=== PATIENT | female | born 2000 | race Caucasian/White ===

== ENCOUNTER → 2022-11-22 07:40 | Outpatient (CLI) | payer OTHER, SELFPAY ==
--- NOTE | ~2022-11-22 | MR_ITS ---
CORRECTED REPORT Ordering provider changed from Joao Reid M.D. to Sumit Reid [facility] [id number] EXAMINATION: MR foot RT wo con DATE: 11/22/2022 08:16 INDICATION: Right foot injury TECHNIQUE: Magnetic resonance imaging (MRI) of the right fore/mid foot was performed without intravenous contrast. Sequences included sagittal T1-weighted FSE, sagittal fluid sensitive FSE STIR, coronal PD-weighted FS FSE, coronal T1- weighted FSE, axial PD-weighted FS FSE, and axial PD-weighted FSE. COMPARISON: None FINDINGS: Bone alignment is normal. Bone marrow signal is normal. No fracture or pathologic marrow replacing process. Mild polyarticular osteoarthritis at the first metatarsophalangeal and multiple tarsometatarsal and interphalangeal joints. No joint effusions or other abnormal fluid collections. Lisfranc ligament complex and the collateral ligament complex at the metatarsophalangeal and interphalangeal joints are normal. Mild fusiform thickening and mild increased signal of the extensor hallucis longus tendon at the level of the midfoot consistent with tendinopathy without discrete tear. The visualized portions of the remaining flexor and extensor tendons as well as the intrinsic musculature of the foot are normal. There are a couple foci of susceptibility artifact likely related to foreign debris positioned along the skin surface plantar to the head of the second metatarsal and plantar between the heads of the third and fourth metatarsals. IMPRESSION: 1. Mild tendinopathy without discrete tear of the extensor hallucis longus tendon at the level of the midfoot. 2. 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 Reviewed, dictated and finalized at location A. MTDD IMPRESSION: 1. Mild tendinopathy without discrete tear of the extensor hallucis longus tend on at the level of the midfoot. 2. 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
== END ==
DX: S99.921A Unspecified injury of right foot, initial encounter (principal); M19.071 Primary osteoarthritis, right ankle and foot; M77.51 Other enthesopathy of right foot and ankle
CPT/HCPCS: 73718

== ENCOUNTER 2023-05-07 10:38 | Outpatient (CLI) | payer OTHER, SELFPAY ==
--- NOTE | ~2023-05-07 | XR_ITS ---
EXAMINATION: XR lumbar spine 2-3V DATE: 05/07/2023 10:53 INDICATION: Back pain. TECHNIQUE: 3 views of lumbar spine including standing views were obtained. COMPARISON: None. FINDINGS: Bone alignment is normal. There is mild chronic anterior wedging of T12 vertebral body. Int ervertebral disc heights are normal. There is multilevel mild facet joint osteoarthritis. IMPRESSION: 1. Mild lumbar facet joint osteoarthritis. Reviewed, dictated and finalized at location E. Y [employer]
== END 2023-05-07 10:39 ==
DX: M53.2X7 Spinal instabilities, lumbosacral region (principal); M53.3 Sacrococcygeal disorders, not elsewhere classified
CPT/HCPCS: 72100